=== PATIENT | female | born 1990 | race Caucasian/White ===

== ENCOUNTER 2022-07-29 16:00 | Outpatient (RCR) | payer OTHER, SELFPAY | END 2022-10-18 11:57 | disposition home or self-care (01) | LOC: ANHDMC 16:00 | PROVIDERS: PCP Family Medicine; Visit Provider Obstetrics & Gynecology | DX: O24.419 Gestational diabetes mellitus in pregnancy, unspecified control (principal); Z3A.00 Weeks of gestation of pregnancy not specified; Z71.89 Other specified counseling | CPT/HCPCS: G0108 ==

== ENCOUNTER 2022-09-06 07:01 | Inpatient (IN) | payer OTHER, SELFPAY ==
[2022-09-06] VITALS (63 sets, daily range): BP systolic 99–145; BP diastolic 59–86; PULSE 58–142; RESP 16–20; TEMP 36.5–37.2; O2SAT 93–100; BMI 43.4
[2022-09-06] MEDS: LACTATED RINGERS 1,000 ML 125 ML IV CONT ×2 (07:30→08:17)
[2022-09-06 07:44] LABS: Glucose Point of Care 92 mg/dl (65-105)
[2022-09-06 07:47] LABS: Basophils Percent Auto 0.3 % (0.2-1.2); Eosinophils Absolute Auto 0.2 K/mm3 (0-0.3); Eosinophils Percent Auto 2.1 % (0-4.4); Hematocrit 34.8 % (37.0-47.0); Hemoglobin 11.4 g/dL (12.0-15.0); Immature Granulocyte Absolute 0.03 K/mm3 (0.00-0.031); Immature Granulocyte Percent A 0.3 % (0-0.5); Lymphocytes Absolute Auto 1.96 K/mm3 (0.9-3.2); Lymphocytes Percent Auto 20.6 % (18.3-44.2); Mean Corpuscular HGB Conc 32.8 g/dl (32-36); Mean Corpuscular Hemoglobin 28.6 pg (26-34); Mean Corpuscular Volume 87.4 fl (80-100); Mean Platelet Volume 10.8 fl (7.4-10.4); Monocytes Absolute Auto 0.7 K/mm3 (0.1-0.6); Monocytes Percent Auto 7.8 % (2.6-8.5); Neutrophils Absolute Auto 6.6 K/mm3 (1.3-6.7); Neutrophils Percent Auto 68.9 % (45.5-73.1); Platelet Count Result 216 k/mm3 (150-375); Red Blood Count 3.98 M/mm3 (4.2-5.4); Red Cell Distribution Width 13.5 % (11.5-14.5); White Blood Count 9.5 K/mm3 (4.5-10.0)
--- NOTE | 2022-09-06 07:47 | PM.IMHP ---
H&P: HPI History of Present Illness Date/Time: 09/06/22 07:47 Chief Complaint: rupture of membranes at term Narrative: a 32-year-old 2 para 1 whose last menstrual period is unknown, EDC is 09/23 22, confirmed by 9 week ultrasound who presents at 38 weeks gestation with spontaneous rupture membranes. She desires repeat section and permanent sterilization. This was reviewed multiple times throughout her . has otherwise been uncomplicated PMFSH Social History Social History Spiritual care concerns: No Meds Home Medications and Allergies Allergies Allergy/AdvReac Type Severity Reaction Status Date / Time bee venom protein (honey bee) Allergy Intermediate swelling Verified 07/13/18 07:21 No Known Drug Allergies Allergy Unknown NONE Verified 07/13/18 07:21 Vital Signs Vital Signs - 24 hr 09/06/22 07:43 Pulse Rate 66 Blood Pressure 132/86 Exam Const: General: cooperative, healthy appearing and comfortable Nutritional Appearance: average body habitus Orientation/consciousness: oriented to person, oriented to place and oriented to time HENMT: Head: normal to inspection Resp: Effort & Inspection: normal respiratory effort Cardio: Rate: regular rate Rhythm: regular rhythm Heart sounds: S1 normal heart sound present and S2 normal heart sound present GI: Inspection: normal to inspection ( uterus soft consistent with dates) Auscultation: normal bowel sounds : Speculum Exam - Vagina: normal appearance of the vagina Speculum Exam - Cervix: normal appearance of the cervix ( clear fluid seen. FHTs reassuring) Assessment and Plan Assessment and plan (1) Term : Code(s): Z34.90 - Encounter for supervision of normal , unspecified, unspecified trimester Status: Acute (2) Previous section: Code(s): Z98.891 - History of uterine scar from previous surgery Status: Acute (3) Sterilization: Code(s): Z30.2 - Encounter for sterilization Status: Acute (4) Spontaneous rupture of membranes: Status: Acute Plan repeat section with bilateral tubal ligation. Permanence and alternatives were reviewed multiple times
--- NOTE | 2022-09-06 07:51 | WPDHPUPDATE1 ---
History and Physical Update Update Date/Time: 09/06/22 07:51 History and Physical has been reviewed, including an updated exam of the patient. There are NO changes in the patient's condition. Risks, benefits, and alternatives have been discussed and questions answered. Patient agrees to proceed with procedure.
--- NOTE | 2022-09-06 08:00 | LDADM ---
This patient, Seema Bonds, was admitted to Labor/Delivery/Recovery 104 on 09/06/22 at 07:01. Plans for surgery/ and pain management were discussed with patient. Patient/family oriented to hospital policies and general routines including ID bracelet, bed and alarms, visiting hours, pain management, procedures, bathroom and other care routines, personal items, smoking policy, room service/diet and guest tray routines, infant security routines, and visiting hours. Patient/Family are encouraged to report perceived risks to care and to ask questions if they do not understand what they are told or what they should do. See OBIX for further documentation.
--- NOTE | 2022-09-06 08:22 | WPDANESEPPF ---
Anes - Initial Pre Proc Eval Procedure: Operation Date: 09/06/22 08:15 Proposed Procedures p Section - Lamont Byrnes MD Date/Time: 09/06/22 08:22 Surgeon: Lamont Byrnes MD Pre Op Diagnosis: Leaking Patient Data Age: 32 Gender: F Height: Weight: Last Vital Signs Pulse 75 09/06/22 08:16 BP 132/83 09/06/22 08:16 O2 Del Method Room Air 09/06/22 07:58 Allergies Allergy/AdvReac Type Severity Reaction Status Date / Time bee venom protein (honey bee) Allergy Intermediate swelling Verified 07/13/18 07:21 No Known Drug Allergies Allergy Unknown NONE Verified 07/13/18 07:21 Laboratory Tests 09/06/22 09/06/22 09/06/22 07:37 07:37 07:37 WBC 9.5 K/mm3 K/mm3 (4.5-10.0) RBC 3.98 M/mm3 L M/mm3 (4.2-5.4) Hgb 11.4 g/dL L g/dL (12.0-15.0) Hct 34.8 % L % (37.0-47.0) MCV 87.4 fl fl (80-100) MCH 28.6 pg pg (26-34) MCHC 32.8 g/dl g/dl (32-36) RDW 13.5 % % (11.5-14.5) Plt Count 216 k/mm3 k/mm3 (150-375) MPV 10.8 fl H fl (7.4-10.4) Immature Gran % (Auto) 0.3 % % (0-0.5) Neut % (Auto) 68.9 % % (45.5-73.1) Lymph % (Auto) 20.6 % % (18.3-44.2) [place] % (Auto) 7.8 % % (2.6-8.5) Eos % (Auto) 2.1 % % (0-4.4) Baso % (Auto) 0.3 % % (0.2-1.2) Lymph # (Auto) 1.96 K/mm3 K/mm3 (0.9-3.2) [place] # (Auto) 0.7 K/mm3 H K/mm3 (0.1-0.6) Eos # (Auto) 0.2 K/mm3 K/mm3 (0-0.3) Baso # (Auto) 0.0 K/mm3 K/mm3 (0.0-0.1) Abs Immat Gran (auto) 0.03 K/mm3 K/mm3 (0.00-0.031) Absolute Neuts (auto) 6.6 K/mm3 K/mm3 (1.3-6.7) Absolute Nucleated RBC 0.0 K/mm3 K/mm3 (0.0-0.012) Nucleated RBC % 0.0 % % (0.0-0.2) POC Capillary Glucose 92 mg/dl mg/dl (65-105) RPR Pending Patient hx anesthesia problems: none Family hx anesthesia problems: none Results Review: All pre-operative results and documents have been reviewed as part of the pre-operative evaluation. [facility] Social History Social History Spiritual care concerns: No Anes - Eval Final PreProcedure Day of Procedure 09/06/22 08:22 Patient weight: obese Heart: regular rate and rhythm Lungs: clear to auscultation Airway: Mallampati scale class II Neurological: alert and oriented Last oral intake: >/= 8 hours ASA classification: II Emergent: no Anesthetic plan: proceed Anesthesia type and monitoring: regional Results Review: All pre-operative results and documents have been reviewed as part of the pre-operative evaluation. Informed Consent: The patient's anesthetic plan and its attendant risks and benefits were discussed with the patient/family/POA. Questions were solicited and answers provided to the satisfaction of the patient/family/POA.
[2022-09-06] MEDS: ceFAZolin 2 GM/D5W 50 ML 2 GM/50 ML BAG IVPB (08:25)
[2022-09-06 08:29] LABS: Rapid Plasma Reagin Non-Reactive (NonReactive)
--- NOTE | 2022-09-06 09:27 | P.OP_ITS ---
Procedure Note - Detailed Date of Procedure 09/06/22 Pre-op Diagnosis Leaking term / desires permanent sterilization and primary section Post-op Diagnosis Same Procedure Performed primary low-transverse section bilateral tubal ligation via modified Rosebud method Surgeon Lamont Byrnes MD Anesthesia Spinal Indications since 32-year-old female who came in at 36 and 6 7th weeks gestation with ruptured membranes. She had planned section and bilateral tubal ligation which had been discussed multiple times in the office. Findings Male 6lb 13oz with Apgars of 8 9 at 1 and 5minutes respectively Description of Procedure patient was prepped draped in the normal sterile fashion placed in the supine position. Under excellent spinal anesthetic the abdomen is entered in Pfannenstiel fashion progressive layers of fascia. Fascia incised midline care number out fashion bilaterally. Underlying muscles were sharply dissected parietal perineum of a Staci clamp. This was carried superiorly and inferiorly dome bladder. Bladder blade formed bladder blade flap formed bladder blade returned. A low-transverse incision made the head delivered the ROSALINDA position. Anterior posterior shoulder delivered spontaneously. Cord clamped x2 and cut and passed off the table given Apgars of 8 [id number] 9 [id number]. Cord blood was drawn clear. Placenta delivered intact manually. Uterus delivered on the abdomen wrapped in a moist towel. After removing the placenta the uterus was closed with running locking 0 Vicryl from lateral edge to lateral edge. This was followed by 2nd imbricating running locking 0 Vicryl from lateral edge to lateral edge. Hemostasis was assured. The right tube was grasped and a good knuckle of tube formed and free tied with 0 chromic. This was free tied followed by free tied the distal and proximal legs with 0 chromic. The portion between cut passed off the table marked as portion of right fallopian tube. In like fashion the left portion of low Peon tube was grasped at its midportion. A good knuckle of tube free tied. The distal and proximal portions free tied with 0 chromic in the portion between cut and removed and marked as portion of left fallopian tube. Hemostasis was assured. The uterine incision inspected 1 last time and noted be hemostatic. The uterus returned the abdomen. The uterus returned 1 last time to look at the uterine incision and it was intact and hemostatic. Laps removed and accounted for. Fascia closed with continuous running 0 Vicryl from lateral edge to midline bilaterally. Irrigation s ubcutaneous layer and the skin closed with 4 Monocryl and glue. Blood loss was 525cc. All sponge, needle, instrument counts were correct. There were no immediate complications noted Estimated Blood Loss 525 Drains No Packing No Pathology Yes ( bilateral portions of fallopian tube) Complications No immediate complications Condition Stable Disposition PACU
--- NOTE | 2022-09-06 09:27 | WPDHPUPDATE1 ---
History and Physical Update Update Date/Time: 09/06/22 09:27 History and Physical has been reviewed, including an updated exam of the patient. There are NO changes in the patient's condition. Risks, benefits, and alternatives have been discussed and questions answered. Patient agrees to proceed with procedure. Please change to planned primary section and bilateral tubal ligation
--- NOTE | 2022-09-06 09:49 | SUR.PHASEI ---
700 ml remains in IV of 1000 LR with 40 units Pitocin.
--- NOTE | 2022-09-06 10:15 | PC.NURSE ---
Pt pumped for 20 mins. Some colostrum noted in flange on both sides, but none in bottles.
--- NOTE | 2022-09-06 10:15 | SUR.PHASEI ---
Pt has passed 2 small clots with fundal massage- pads weighed- 75 ml.
--- NOTE | 2022-09-06 10:45 | SUR.PHASEI ---
Pt passed another small clot. Pad weighed [address] Neptali macias.
--- NOTE | 2022-09-06 10:55 | SUR.PHASEI ---
Dr. Neptali Byrnes returned page and informed of several instances of small clots passed with fundal massage. Total recovery QBL so far is 115 ml. Order received for Methergine.
--- NOTE | 2022-09-06 11:00 | SUR.PHASEI ---
Additional clot expressed with fundal massage. Pad weighed 45 gms.
[2022-09-06] MEDS: METHYLERGONOVINE MALEATE 0.2 MG/ML VIAL IM (11:02)
[2022-09-06] MEDS: KETOROLAC 30 MG/ML VIAL (*BKC) 15 MG IV PUSH (11:14)
[2022-09-06] MEDS: OXYTOCIN 30 UNITS/NS 500 ML 30 UNITS/500 ML BAG 125 UNITS IV CONT (11:18)
--- NOTE | 2022-09-06 11:48 | PC.NURSE ---
Pt into nursery to see infant.
--- NOTE | 2022-09-06 12:20 | PC.NURSE ---
Pt still in nursery with . Fundus firm at U with small to moderate rubra- no clots expressed. Pt doing fine pain marley. Pt touching .
--- NOTE | 2022-09-06 13:00 | PC.NURSE ---
Pt still in nursery with . Doing OK pain marley. Fundus firm at U with small to moderate rubra and no clots expressed. Pt would prefer to stay with infant awhile longer.
--- NOTE | 2022-09-06 13:41 | PC.NURSE ---
Patient transferred to post room #91 via ( stretcher ). Support person present. Oriented to unit, room, information board, rooming in, admission packet and security measures. Patient verbalizes understanding.
[2022-09-06] MEDS: DEXTROSE 5%/0.45% SOD CHL 1,000 ML 125 ML IV CONT (16:32)
[2022-09-06] MEDS: DOCUSATE SODIUM 100 MG CAPSULE PO (16:39)
[2022-09-06] MEDS: KETOROLAC 30 MG/ML VIAL (*BKC) IV PUSH (19:40)
[2022-09-06] MEDS: HYDROcodone/acetaminophen (*CRX) 5-325 MG TABLET 1 TAB PO (23:49)
[2022-09-07 04:02] VITALS: BP 111/71; PULSE 68; RESP 18; TEMP 36.7; O2SAT 98
[2022-09-07] MEDS: IBUPROFEN 600 MG TABLET PO ×3 (04:09→20:10)
[2022-09-07 05:16] LABS: Basophils Percent Auto 0.2 % (0.2-1.2); Eosinophils Absolute Auto 0.1 K/mm3 (0-0.3); Eosinophils Percent Auto 0.5 % (0-4.4); Hematocrit 29.9 % (37.0-47.0); Hemoglobin 9.6 g/dL (12.0-15.0); Immature Granulocyte Absolute 0.05 K/mm3 (0.00-0.031); Immature Granulocyte Percent A 0.4 % (0-0.5); Lymphocytes Absolute Auto 2.45 K/mm3 (0.9-3.2); Lymphocytes Percent Auto 18.9 % (18.3-44.2); Mean Corpuscular HGB Conc 32.1 g/dl (32-36); Mean Corpuscular Hemoglobin 29.2 pg (26-34); Mean Corpuscular Volume 90.9 fl (80-100); Monocytes Absolute Auto 1.2 K/mm3 (0.1-0.6); Monocytes Percent Auto 9.3 % (2.6-8.5); Neutrophils Absolute Auto 9.2 K/mm3 (1.3-6.7); Neutrophils Percent Auto 70.7 % (45.5-73.1); Platelet Count Result 190 k/mm3 (150-375); Red Blood Count 3.29 M/mm3 (4.2-5.4); Red Cell Distribution Width 13.6 % (11.5-14.5)
--- NOTE | 2022-09-07 07:42 | PM.DS ---
DS: Admitting Diagnosis Discharge Date 09/08/22 Admitting Diagnosis Term with spontaneous rupture membranes and desiring permanent sterilization DS: Discharge Diagnosis Discharge Diagnosis (1) Spontaneous rupture of membranes: Status: Acute (2) Sterilization: Code(s): Z30.2 - Encounter for sterilization Status: Acute (3) Term : Code(s): Z34.90 - Encounter for supervision of normal , unspecified, unspecified trimester Status: Acute DS: Summary Hospital Course Reason for hospitalization: rupture membranes at term in a patient who had planned primary and desires permanent sterilization Hospital Course: the patient was admitted 09/06/2022. She underwent low-transverse section bilateral tubal ligation after noting spontaneous rupture membranes. Hospital course unremarkable. She remained afebrile. She was up, voiding lateral to the, ambulating, breast-feeding, and general without complaints. Time Spent with Patient Time attestation: Total time spent providing and/or coordinating discharge services: Exam Const: General: cooperative, healthy appearing and comfortable Nutritional Appearance: average body habitus Orientation/consciousness: oriented to person, oriented to place and oriented to time HENMT: Head: normal to inspection Resp: Effort & Inspection: normal respiratory effort Cardio: Rate: regular rate Rhythm: regular rhythm Heart sounds: S1 normal heart sound present and S2 normal heart sound present GI: Inspection: normal to inspection and incision ( Incision is clean dry and intact) DS: Data Data Completed and Pending Pending studies at discharge: Pending at discharge 09/06/22 09:27 Surgical [PTH] Routine Labs on day of discharge: Labs from last 24 hours 09/07/22 09/06/22 09/06/22 04:08 07:37 07:37 WBC 13.0 H RBC 3.29 L Hgb 9.6 L Hct 29.9 L MCV 90.9 MCH 29.2 MCHC 32.1 RDW 13.6 Plt Count 190 MPV 11.0 H Immature Gran % (Auto) 0.4 Neut % (Auto) 70.7 Lymph % (Auto) 18.9 [place] % (Auto) 9.3 H Eos % (Auto) 0.5 Baso % (Auto) 0.2 Lymph # (Auto) 2.45 [place] # (Auto) 1.2 H Eos # (Auto) 0.1 Baso # (Auto) 0.0 Abs Immat Gran (auto) 0.05 H Absolute Neuts (auto) 9.2 H Absolute Nucleated RBC 0.0 Nucleated RBC % 0.0 POC Capillary Glucose 92 RPR Blood Type A Positive Antibody Screen Negative 09/06/22 09/06/22 07:37 07:37 WBC 9.5 RBC 3.98 L Hgb 11.4 L Hct 34.8 L MCV 87.4 MCH 28.6 MCHC 32.8 RDW 13.5 Plt Count 216 MPV 10.8 H Immature Gran % (Auto) 0.3 Neut % (Auto) 68.9 Lymph % (Auto) 20.6 [place] % (Auto) 7.8 Eos % (Auto) 2.1 Baso % (Auto) 0.3 Lymph # (Auto) 1.96 [place] # (Auto) 0.7 H Eos # (Auto) 0.2 Baso # (Auto) 0.0 Abs Immat Gran (auto) 0.03 Absolute Neuts (auto) 6.6 Absolute Nucleated RBC 0.0 Nucleated RBC % 0.0 POC Capillary Glucose RPR Non-reactive Blood Type Antibody Screen Discharge Plan Discharge Attending physician on discharge: Lamont Umana Discharging Clinician: Lamont Umana Patient Disposition: Home, Self-Care Activity: may shower, no straining, may drive after 2 weeks and pelvic rest Diet: heart healthy Wound Care Instructions: follow printed instructions Patient Instructions: Antibiotic Form Stand Alone Forms: General Discharge Information Follow-up/Referrals: Lamont Umana MD [Physician] - Discharge Medications: Continued PNV cmb#95-ferrous fumarate-FA [] 28 mg iron- 800 mcg Tablet 1 tablet PO DAILY Date of admission: 09/06/22 07:01 Primary Care Provider: Jennifer,Matias Admitting Provider: Lamont Umana Attending physician on admission: Lamont Umana Condition: Stable
--- NOTE | 2022-09-07 07:45 | P.PNOB_ITS ---
OB - PN: Subj Subjective Date/time seen: 09/07/22 07:45 Patient comments: no complaints and pain well controlled baby status: doing well OB - PN: Obj Data Labs 09/07/22 04:08 Labs: Laboratory Results - last 24 hr 09/06/22 09/06/22 09/06/22 07:37 07:37 07:37 WBC 9.5 RBC 3.98 L Hgb 11.4 L Hct 34.8 L MCV 87.4 MCH 28.6 MCHC 32.8 RDW 13.5 Plt Count 216 MPV 10.8 H Immature Gran % (Auto) 0.3 Neut % (Auto) 68.9 Lymph % (Auto) 20.6 [place] % (Auto) 7.8 Eos % (Auto) 2.1 Baso % (Auto) 0.3 Lymph # (Auto) 1.96 [place] # (Auto) 0.7 H Eos # (Auto) 0.2 Baso # (Auto) 0.0 Abs Immat Gran (auto) 0.03 Absolute Neuts (auto) 6.6 Absolute Nucleated RBC 0.0 Nucleated RBC % 0.0 RPR Non-reactive Blood Type A Positive Antibody Screen Negative 09/07/22 04:08 WBC 13.0 H RBC 3.29 L Hgb 9.6 L Hct 29.9 L MCV 90.9 MCH 29.2 MCHC 32.1 RDW 13.6 Plt Count 190 MPV 11.0 H Immature Gran % (Auto) 0.4 Neut % (Auto) 70.7 Lymph % (Auto) 18.9 [place] % (Auto) 9.3 H Eos % (Auto) 0.5 Baso % (Auto) 0.2 Lymph # (Auto) 2.45 [place] # (Auto) 1.2 H Eos # (Auto) 0.1 Baso # (Auto) 0.0 Abs Immat Gran (auto) 0.05 H Absolute Neuts (auto) 9.2 H Absolute Nucleated RBC 0.0 Nucleated RBC % 0.0 RPR Blood Type Antibody Screen OB - PN A/P Plan day: 1 Plan: routine care Time Spent With Patient Time: Total time spent is greater than 50% in coordination of care (as documented) at patient's floor/unit and/or counseling patient: Time with patient: less than 15 minutes Exam Const: General: cooperative, healthy appearing and comfortable Nutritional Appearance: average body habitus Orientation/consciousness: oriented to person, oriented to place and oriented to time Resp: Effort & Inspection: normal respiratory effort Cardio: Rate: regular rate Rhythm: regular rhythm Heart sounds: S1 normal heart sound present and S2 normal heart sound present GI: Inspection: normal to inspection and incision ( wound is clean dry and intact)
[2022-09-07 08:05] VITALS: BP 121/72; PULSE 70; RESP 18; TEMP 37.3; O2SAT 96
[2022-09-07] MEDS: HYDROcodone/acetaminophen (*CRX) 10-325 MG TABLET 1 TAB PO ×3 (08:22→20:10)
[2022-09-07] MEDS: MULTIVIT/MIN/PREN/FOL AC/IRON TABLET 1 TAB PO (08:22)
[2022-09-07] MEDS: DOCUSATE SODIUM 100 MG CAPSULE PO ×2 (08:22→17:00)
[2022-09-07] MEDS: POLYSACCHARIDE IRON COMPLEX 150 MG CAPSULE PO ×2 (08:22→17:00)
[2022-09-07] MEDS: SIMETHICONE 80 MG TAB.CHEW PO ×2 (08:22→15:30)
--- NOTE | 2022-09-07 09:02 | WPDANLDPN2 ---
Anes-Prog Note L&D Date/Time: 09/07/22 09:02 Comfortable throughout: section Neuraxial method: spinal Epidural/Spinal procedure site: clean & non-tender Neuro status: Neuro function grossly intact. Cardiovascular status: normal Respiratory status: normal Airway patency: baseline Mental status: baseline Post-Op hydration status: normal Vital Signs: Last Vital Signs Temp 36.7 C 09/07/22 04:02 Pulse 68 09/07/22 04:02 Resp 18 09/07/22 04:02 BP 111/71 09/07/22 04:02 Pulse Ox 98 09/07/22 04:02 O2 Del Method Room Air 09/06/22 16:46 Pain score (VAS): 2/10 I/O: Intake & Output 09/06/22 09/07/22 09/07/22 23:59 07:59 15:59 Intake Total 650 1400 Output Total 2950 1150 Balance -2300 250 Post-procedural complaints: none Patient feedback: Patient satisfied with anesthetic care.
--- NOTE | 2022-09-07 09:03 | WPDANLDNPN2 ---
Anes-Prog Note L&D-Neuraxial Date/Time: 09/07/22 09:03 Neuraxial medications: intrathecal PF morphine Opiod-related complaints: none Patient feedback: Patient satisfied with post-operative pain management.
[2022-09-07 09:45] VITALS: PULSE 70; RESP 18; O2SAT 96
[2022-09-07] MEDS: HYDROcodone/acetaminophen (*CRX) 5-325 MG TABLET 1 TAB PO (11:20)
--- NOTE | 2022-09-07 15:34 | PC.NURSE ---
[id number] Introductions were made, then consulted with patient to assess needs related to . Mother led the conversation with her?plans to feed?her infant and the?experience so far. Resources provided for inpatient and outpatient services with the feeding sheet, mom/baby guide and name written on the white board. Mother voiced understanding of information and requested assistance. mother is skin to skin with her infant. is sleepy and reluctant with no feeding cues visualized. Encouraged mother to pump to protect her milk supply and afterwards she fed the few drops of colostrum to her infant using her finger. Reviewed adequate intake/output, weigh, jaundice and the wake/feeding behaviors typical of a early term infant. 1215 Education regarding paced bottle feeding was given to the parents and infant was supplemented at this time. Reported to the primary RN.
[2022-09-07 18:52] VITALS: BP 127/86; PULSE 64; RESP 18; TEMP 36.8; O2SAT 96
[2022-09-08] MEDS: SIMETHICONE 80 MG TAB.CHEW PO ×2 (04:58→10:00)
[2022-09-08] MEDS: HYDROcodone/acetaminophen (*CRX) 5-325 MG TABLET 1 TAB PO ×2 (04:58→11:20)
[2022-09-08] MEDS: IBUPROFEN 600 MG TABLET PO ×2 (04:58→11:20)
--- NOTE | 2022-09-08 07:41 | PM.OBPNVD ---
OB - PN: Subj Subjective Date/time seen: 09/08/22 07:41 Patient comments: no complaints and pain well controlled baby status: doing well and nursing well OB - PN: Obj Data Labs 09/07/22 04:08 OB - PN A/P Plan day: 2 Plan: routine care, discharge home and follow up 6 weeks (4) Time Spent With Patient Time: Total time spent is greater than 50% in coordination of care (as documented) at patient's floor/unit and/or counseling patient: Time with patient: less than 15 minutes Exam Const: General: cooperative, healthy appearing and comfortable Nutritional Appearance: average body habitus Orientation/consciousness: oriented to person, oriented to place and oriented to time HENMT: Head: normal to inspection Resp: Effort & Inspection: normal respiratory effort Cardio: Rate: regular rate Rhythm: regular rhythm Heart sounds: S1 normal heart sound present and S2 normal heart sound present GI: Inspection: normal to inspection and incision (cdi)
[2022-09-08 08:35] VITALS: BP 140/78; PULSE 84; RESP 16; TEMP 37.3; O2SAT 97
[2022-09-08 09:30] VITALS: PULSE 84; RESP 16; O2SAT 97
[2022-09-08] MEDS: MULTIVIT/MIN/PREN/FOL AC/IRON TABLET 1 TAB PO (10:00)
[2022-09-08] MEDS: POLYSACCHARIDE IRON COMPLEX 150 MG CAPSULE PO (10:00)
[2022-09-08] MEDS: DOCUSATE SODIUM 100 MG CAPSULE PO (10:00)
[2022-09-10 10:08] VITALS: BP 126/69; PULSE 68; RESP 18; TEMP 37.4; O2SAT 98
== END 2022-09-08 13:35 | disposition home or self-care (01) | DRG 785 ==
LOC: ANHOBOP 07:05 → ANHLDR 07:28 → ANHOB2 13:44
PROVIDERS: Admitting Provider Obstetrics & Gynecology; PCP Family Medicine; Visit Provider Obstetrics & Gynecology
PROC: 10D00Z1 Extraction of Products of Conception, Low, Open Approach (ICD-10-PCS; CPT 59514; principal; 2022-09-06 08:15)
DX: O42.92 Full-term premature rupture of membranes, unspecified as to length of time between rupture and onset of labor (principal); O34.211 Maternal care for low transverse scar from previous cesarean delivery; O24.420 Gestational diabetes mellitus in childbirth, diet controlled; Z37.0 Single live birth; Z3A.37 37 weeks gestation of pregnancy; O99.824 Streptococcus B carrier state complicating childbirth; Z30.2 Encounter for sterilization
CPT/HCPCS: 36415; 82948; 84112; 85025; 86592; 86850; 86900; 86901; 88302; A9270; J0131; J0456; J0690; J1885; J2210; J2274; J2590; J7120

== ENCOUNTER 2023-11-19 14:00 | Emergency (ER) | payer BC, SELFPAY ==
[2023-11-19 14:09] VITALS: BP 134/84; PULSE 81; RESP 16; TEMP 36.4; O2SAT 100
[2023-11-19] MEDS: SODIUM CHLORIDE 0.9% IV 1,000 ML 999 ML IV CONT (14:54)
[2023-11-19 15:03] LABS: Basophils Percent Auto 0.3 % (0.2-1.2); Eosinophils Absolute Auto 0.2 K/mm3 (0-0.3); Eosinophils Percent Auto 1.7 % (0-4.4); Hematocrit 34.3 % (37.0-47.0); Hemoglobin 10.8 g/dL (12.0-15.0); Immature Granulocyte Absolute 0.09 K/mm3 (0.00-0.031); Immature Granulocyte Percent A 0.8 % (0-0.5); Lymphocytes Absolute Auto 2.38 K/mm3 (0.9-3.2); Lymphocytes Percent Auto 19.8 % (18.3-44.2); Mean Corpuscular HGB Conc 31.5 g/dl (32-36); Mean Corpuscular Hemoglobin 28.9 pg (26-34); Mean Corpuscular Volume 91.7 fl (80-100); Mean Platelet Volume 9.9 fl (7.4-10.4); Monocytes Absolute Auto 1.1 K/mm3 (0.1-0.6); Monocytes Percent Auto 8.9 % (2.6-8.5); Neutrophils Absolute Auto 8.2 K/mm3 (1.3-6.7); Neutrophils Percent Auto 68.5 % (45.5-73.1); Platelet Count Result 419 k/mm3 (150-375); Red Blood Count 3.74 M/mm3 (4.2-5.4); Red Cell Distribution Width 13.1 % (11.5-14.5)
--- NOTE | 2023-11-19 15:03 | ED.GENADULT ---
HPI - General Adult General Chief complaint: Headache Stated complaint: low energy headache Time Seen by Provider: 11/19/23 14:05 History of Present Illness HPI narrative: Patient is a 33-year-old female who presents ER with fatigue. Ongoing throughout the last week. She was seen by her PCP an outpatient lab work showed that she is dehydrated she need to go to the ER. She had a mild leukocytosis. She had been having diarrhea then an episode of emesis. No abdominal pain. No chest pain or chest pressure. No productive cough. No reported fevers. She received potassium supplementation at the ER. She still does not feel better. She reports mild throbbing headache. No sinus congestion or sore throat or productive cough. No known sick contacts. Related Data Home Medications Medication Instructions Recorded Confirmed vit no.95-ferrous 1 tablet PO DAILY 09/06/22 09/06/22 fumarate 28 mg-folic acid 800 mcg tablet () Allergies Allergy/AdvReac Type Severity Reaction Status Date / Time bee venom protein (honey bee) Allergy Intermediate swelling Verified 11/19/23 14:21 No Known Drug Allergies Allergy Unknown NONE Verified 07/13/18 07:21 Review of Systems Review of Systems: All systems reviewed & are unremarkable except as noted in HPI and below Constitutional: Constitutional: Denies chills, Reports fatigue and Denies fever(s) ENT: Reports system reviewed and no additional complaints, except as documented Cardiovascular: Cardiovascular: Reports no additional cardiovascular complaints Respiratory: Respiratory: Reports no additional respiratory complaints Gastrointestinal: Gastrointestinal: Denies abdominal pain, Denies constipation, Reports diarrhea, Reports nausea and Denies vomiting Genitourinary: Genitourinary: Reports no additional female genitourinary complaints [facility] Past Medical History Medical History (Updated 11/19/23 @ 15:43 by Jonathan Cifuentes MD) Healthy female adult Surgical History Surgical History (Updated 11/19/23 @ 15:06 by Jonathan Cifuentes MD) H/O pelvic surgery rectovaginal fistula repair. S/P colostomy takedown Family History Family History (Updated 09/06/22 @ 10:38 by Yamile Rodriguez RN) Other No pertinent family history in first degree relatives Social History Social History Smoking status: Never smoker Second hand tobacco smoke exposure: Yes Additional smoking assessment comments: smokes- but outside only Substance use: never Lack of Transportation: No Lack of Food: Never True Current Housing: I Have Housing Concerned About Future Housing: No Difficulty Paying Gas/Electric Bills: No Difficulty Paying for Meds: No Currently Unemployed: No Education: Bachelor's Degree Difficulty w/ Childcare or Family Care: No Spiritual care concerns: No Exam Narrative: GENERAL: Well-appearing, well-nourished, and in no acute distress. HEAD: Normocephalic, atraumatic. ENT: Mucous membranes moist. TMs normal bilaterally. NECK: Supple. CHEST: Clear to auscultation. No respiratory distress. HEART: Regular rate and rhythm. Normal peripheral pulses. ABDOMEN: Soft, nontender, nondistended. EXTREMITIES: Normal range of motion. No edema. SKIN: Warm, dry, no rash. NEURO: Alert and oriented x3. PSYCH: Normal mood and affect. Course Course Emergency Course: Patient resting comfortably and being hydrated. Urinalysis with evidence of UTI. White blood cell count elevated. Will start on oral antibiotics for home. Recommend follow-up with PCP. Vital Signs Vital signs: Vital Signs Temperature 97.6 F 11/19/23 14:09 Pulse Rate 81 11/19/23 14:09 Respiratory Rate 16 11/19/23 14:09 Blood Pressure 134/84 11/19/23 14:09 Pulse Oximetry 100 11/19/23 14:09 Oxygen Delivery Room Air 11/19/23 14:09 Temperature 97.6 F 11/19/23 14:09 Pulse Rat
[2023-11-19 15:07] LABS: Appearance Urine Cloudy (Clear); Bacteria Urine 2+ /hpf; Bilirubin Urine Negative (Negative); Blood Urine Trace (Negative); Color Urine Yellow (Yellow); Glucose Urine UA Negative (Negative); Ketones Urine Negative (Negative); Leukocyte Esterase Ur 2+ LEU/UL (Negative); Nitrate Urine Negative (Negative); Protein Urine 1+ mg/dL (Negative); RBC Urine 0-2 /hpf (0-2); Specific Grav Ur 1.011 (1.001-1.035); Squamous Epithelial Cell Urine Few /hpf (Few); Urobilinogen Urine 0.2 mg/dL (<2.0); WBC Urine 51-100 /hpf (0-3); pH Urine 5.5 (5.0-9.0)
[2023-11-19 15:10] LABS: Add Urine Microscopic? YES
[2023-11-19 15:19] LABS: Alanine Aminotransferase 84 U/L (6-35); Albumin Level 4.3 g/dL (3.5-5.1); Alkaline Phosphatase 173 U/L (38-126); Anion Gap 10 mmol/L (4-12); Aspartate Amino Transferase 40 U/L (14-36); Bilirubin,Total 0.8 mg/dL (0.2-1.3); Blood Urea Nitrogen 12 mg/dL (7-17); Calcium 9.2 mg/dL (8.4-10.2); Carbon Dioxide 30 mmol/L (22-30); Chloride 104 mmol/L (98-107); Estimated CRCL calculation 114 ml/min; Estimated Glomerular Filt Rate > 60; Glucose 97 mg/dL (65-110); Potassium 3.5 mmol/L (3.4-5.0); Sodium 144 mmol/L (137-145)
[2023-11-19 15:53] VITALS: BP 130/79; PULSE 84; RESP 15; TEMP 37.1; O2SAT 100
[2023-11-19 16:12] LABS: Influenza A QL RT-PCR Negative (Negative); Influenza B QL RT-PCR Negative (Negative); RSV RNA, RT-PCR Negative (Negative); SARS-CoV-2 RNA PCR Negative (Negative)
== END 2023-11-19 15:53 | disposition home or self-care (01) ==
PROVIDERS: Emergency Provider Emergency Medicine; PCP Family Medicine
DX: N39.0 Urinary tract infection, site not specified (principal); Z20.822 Contact with and (suspected) exposure to COVID-19
CPT/HCPCS: 36415; 80053; 81001; 81025; 85025; 87077; 87086; 87088; 87186; 87637; 96360; 99283; J7030